=== PATIENT | female | born 2000 | race Caucasian/White ===

== ENCOUNTER → 2018-07-01 | Outpatient (CLI) | payer OTHER ==
[~2018-07-01] MED LIST: CRUTCH4 USE; IBUP600 PO; Percocet 5-3251 EACH PO
[2018-07-05 00:07] LABS: CHLAMYDIA TRACHOMATIS, NAA Negative (Negative); NEISSERIA GONORRHOEAE, NAA Negative (Negative)
== END | disposition home or self-care (01) ==
LOC: LAB 13:35 → LAB SHORT 13:35
PROVIDERS: Family Medicine
DX: Z11.3 Encounter for screening for infections with a predominantly sexual mode of transmission (principal)
CPT/HCPCS: 87491; 87591

== ENCOUNTER → 2018-08-09 | Outpatient (CLI) | payer OTHER ==
[2018-08-10 14:28] LABS: Candida species (DNA Probe) Negative (NEGATIVE); G. vaginalis (DNA Probe) Negative (NEGATIVE); T. vaginalis (DNA Probe) Negative (NEGATIVE)
== END ==
LOC: LAB SHORT 15:25 → LAB 15:25
PROVIDERS: Nurse Practitioner Family
DX: N39.0 Urinary tract infection, site not specified (principal); N89.8 Other specified noninflammatory disorders of vagina
CPT/HCPCS: 87086; 87480; 87510; 87660

== ENCOUNTER 2018-09-19 12:42 | Emergency (ER) | payer OTHER ==
[~2018-09-19] VITALS: Ht 162.6 cm; Wt 65.8 kg
[~2018-09-19 12:42] MED LIST changes: +Verotin-Gr Cap1 EACH PO
[2018-09-19 13:47] LABS: Source, Urine Clean Catch
[2018-09-19 13:51] LABS: BASOPHILS ABSOLUTE AUTO 0.02 K/mm3 (0.00-0.23); BASOPHILS PERCENT AUTO 0 % (0-2); EOSINOPHILS ABSOLUTE AUTO 0.01 K/mm3 (0.00-0.68); EOSINOPHILS PERCENT AUTO 0 % (0-6); Hematocrit 36.5 % (33.0-51.0); Hemoglobin 12.3 g/dL (11.5-16.0); IMMATURE GRAN ABSOLUTE AUTO 0.07 K/mm3 (0.00-0.10); IMMATURE GRAN PERCENT AUTO 1 % (0-1); LYMPHOCYTES PERCENT AUTO 5 % (21-46); MONOCYTES ABSOLUTE AUTO 0.25 K/mm3 (0.16-1.47); MONOCYTES PERCENT AUTO 2 % (4-13); Mean Corpuscular HGB 31.4 pg (26.0-34.0); Mean Corpuscular HGB Conc 33.7 g/dL (31.5-36.5); Mean Corpuscular Volume 93 fL (80-100); Mean Platelet Volume 9.6 fL (9.1-12.4); NEUTROPHILS ABSOLUTE AUTO 14.27 K/mm3 (1.96-9.15); NEUTROPHILS PERCENT AUTO 93 % (41-73); Platelet Count 262 K/mm3 (150-400); RDW Coefficient Variation 12.5 % (11.7-14.2); Red Blood Cell Count 3.92 M/mm3 (3.80-5.20); White Blood Cell Count 15.32 K/mm3 (4.00-11.30)
[2018-09-19 13:59] LABS: Bilirubin, Urine Neg (Neg); Blood, Urine Neg (Neg); Glucose Qualitative, Urine Neg (Neg); Ketones, Urine 4+ (Neg); Leukocyte Esterase, Urine Neg (Neg); Nitrite, Urine Neg (Neg); Protein, Urine Neg (Neg); Urobilinogen, Urine NORM (Normal)
[2018-09-19 14:11] LABS: Alanine Aminotransfer (ALT/SGP 19 U/L (12-78); Albumin, Blood 3.5 g/dL (3.4-5.0); Albumin/Globulin Ratio 0.9 (0.8-1.8); Alk Phos 60 U/L (50-136); Anion Gap 9 mmol/L (6-16); Aspartate Aminotrans (AST/SGOT 15 U/L (12-37); Bilirubin, Total 0.6 mg/dL (0.1-1.0); Blood Urea Nitrogen 8 mg/dL (8-24); Bun/Creatinine Ratio 14.5 (12.0-20.0); CO2, Blood 21 mmol/L (21-32); Calcium, Blood 8.7 mg/dL (8.5-10.1); Chloride, Blood 107 mmol/L (98-108); Creatinine, Blood 0.55 mg/dL (0.40-1.00); Globulin, Blood 3.8 g/dL (2.2-4.0); Glomerular Filtration Rate >60 (60-); Glucose, Blood 96 mg/dL (70-99); Potassium, Blood 3.6 mmol/L (3.5-5.5); Sodium, Blood 137 mmol/L (136-145); Total Protein, Blood 7.3 g/dL (6.4-8.2)
[2018-09-19 14:18] LABS: Appearance, Urine Hazy (Clear); Color, Urine Yellow (P-Yellow)
[2018-09-19 14:35] LABS: Beta HCG, Quantitative, Serum 29781 mIU/mL (0-3)
[2018-09-19 14:36] LABS: Bacteria Few /hpf; Red Blood Cells, Urine 0-2 /hpf (0-2); Squamous Epithelial Cells Many /hpf (Few)
[2018-09-19 14:37] LABS: Amorphous Light (0-Heavy); Mucus Mod (0-Heavy)
[2018-09-19] MEDS ORDERED: ONDA4ODT MM (16:57)
[2018-09-19] MEDS ORDERED: Augmentin 875-1 EACH PO (16:57)
== END 2018-09-19 17:10 | disposition home or self-care (01) ==
LOC: ER 12:42
PROVIDERS: Physician Assistant
DX: O99.612 Diseases of the digestive system complicating pregnancy, second trimester (principal); K52.9 Noninfective gastroenteritis and colitis, unspecified; Z3A.15 15 weeks gestation of pregnancy
CPT/HCPCS: 36415; 80053; 81001; 84702; 85025; 86900; 86901; 96374; 99285-25; J2405; J7030

== ENCOUNTER 2019-03-14 04:45 | Inpatient (IN) | payer OTHER ==
[~2019-03-14] VITALS: Ht 162.6 cm; Wt 81.8 kg
[~2019-03-14 04:45] MED LIST changes: +Augmentin 875-1 EACH PO; +ONDA4ODT MM
[2019-03-14 05:17] LABS: BASOPHILS ABSOLUTE AUTO 0.02 K/mm3 (0.00-0.23); BASOPHILS PERCENT AUTO 0 % (0-2); EOSINOPHILS ABSOLUTE AUTO 0.11 K/mm3 (0.00-0.68); EOSINOPHILS PERCENT AUTO 1 % (0-6); Hematocrit 38.7 % (33.0-51.0); Hemoglobin 13.2 g/dL (11.5-16.0); IMMATURE GRAN ABSOLUTE AUTO 0.07 K/mm3 (0.00-0.10); IMMATURE GRAN PERCENT AUTO 1 % (0-1); LYMPHOCYTES ABSOLUTE AUTO 2.36 K/mm3 (0.84-5.20); LYMPHOCYTES PERCENT AUTO 19 % (21-46); MONOCYTES ABSOLUTE AUTO 0.81 K/mm3 (0.16-1.47); MONOCYTES PERCENT AUTO 7 % (4-13); Mean Corpuscular HGB 31.1 pg (26.0-34.0); Mean Corpuscular HGB Conc 34.1 g/dL (31.5-36.5); Mean Corpuscular Volume 91 fL (80-100); Mean Platelet Volume 10.7 fL (9.1-12.4); NEUTROPHILS ABSOLUTE AUTO 9.17 K/mm3 (1.96-9.15); NEUTROPHILS PERCENT AUTO 73 % (41-73); Platelet Count 196 K/mm3 (150-400); RDW Coefficient Variation 12.5 % (11.7-14.2); RDW Standard Deviation 40.9 fL (35.1-46.3); Red Blood Cell Count 4.25 M/mm3 (3.80-5.20); White Blood Cell Count 12.54 K/mm3 (4.00-11.30)
[2019-03-15 05:00] LABS: BASOPHILS ABSOLUTE AUTO 0.02 K/mm3 (0.00-0.23); BASOPHILS PERCENT AUTO 0 % (0-2); EOSINOPHILS ABSOLUTE AUTO 0.07 K/mm3 (0.00-0.68); EOSINOPHILS PERCENT AUTO 1 % (0-6); Hematocrit 36.3 % (33.0-51.0); Hemoglobin 12.3 g/dL (11.5-16.0); IMMATURE GRAN ABSOLUTE AUTO 0.06 K/mm3 (0.00-0.10); IMMATURE GRAN PERCENT AUTO 0 % (0-1); LYMPHOCYTES ABSOLUTE AUTO 1.72 K/mm3 (0.84-5.20); LYMPHOCYTES PERCENT AUTO 12 % (21-46); MONOCYTES ABSOLUTE AUTO 0.82 K/mm3 (0.16-1.47); MONOCYTES PERCENT AUTO 6 % (4-13); Mean Corpuscular HGB 31.1 pg (26.0-34.0); Mean Corpuscular HGB Conc 33.9 g/dL (31.5-36.5); Mean Corpuscular Volume 92 fL (80-100); Mean Platelet Volume 10.6 fL (9.1-12.4); NEUTROPHILS ABSOLUTE AUTO 11.27 K/mm3 (1.96-9.15); NEUTROPHILS PERCENT AUTO 81 % (41-73); Platelet Count 153 K/mm3 (150-400); RDW Coefficient Variation 12.7 % (11.7-14.2); RDW Standard Deviation 42.5 fL (35.1-46.3); Red Blood Cell Count 3.95 M/mm3 (3.80-5.20); White Blood Cell Count 13.96 K/mm3 (4.00-11.30)
--- NOTE | 2019-03-15 19:29 | NUR ---
DISCAHRGE INSTRUCTIONS REVIEWED WITH PATIENT. VERBALIZES UNDERSTANDING, DENIES ANY FURTHER QUESTIONS OR CONCERNS. BANDS MATCHED. MOM DISCHARGED HOME WITH BABY.
== END 2019-03-15 19:13 | disposition home or self-care (01) | DRG 807 ==
LOC: BC 04:45
PROVIDERS: ADMIT Nurse Practitioner Obstetrics & Gynecology
PROC: 10E0XZZ Delivery of Products of Conception, External Approach (ICD-10-PCS; principal; 2019-03-14)
PROC: 3E0R3BZ Introduction of Anesthetic Agent into Spinal Canal, Percutaneous Approach (ICD-10-PCS; 2019-03-14)
DX: O48.0 Post-term pregnancy (principal); Z37.0 Single live birth; O99.824 Streptococcus B carrier state complicating childbirth; Z3A.40 40 weeks gestation of pregnancy
CPT/HCPCS: 36415; 51702; 85025; J1885; J2001; J2210; J2405; J2590; J3010; J7120

== ENCOUNTER 2022-01-14 00:24 | Emergency (ER) | payer OTHER ==
[~2022-01-14] VITALS: Ht 162.6 cm; Wt 72.6 kg
[2022-01-14 00:57] LABS: Source, Urine Clean Catch
[2022-01-14 02:36] LABS: Albumin, Blood 4.3 g/dL (3.4-5.0); Albumin/Globulin Ratio 1.3 (0.8-1.8); Bilirubin, Total 1.5 mg/dL (0.1-1.0); Bun/Creatinine Ratio 19.8 (12.0-20.0); Calcium, Blood 9.4 mg/dL (8.5-10.1); Creatinine, Blood 0.76 mg/dL (0.40-1.00); Globulin, Blood 3.4 g/dL (2.2-4.0); Potassium, Blood 4.2 mmol/L (3.5-5.5); Total Protein, Blood 7.7 g/dL (6.4-8.2)
[2022-01-14 04:33] LABS: Appearance, Urine Hazy (Clear); Color, Urine Amber (P-Yellow); Glucose Qualitative, Urine Neg (Neg); Ketones, Urine 4+ (Neg); Leukocyte Esterase, Urine 1+ (Neg); Nitrite, Urine Neg (Neg); Protein, Urine 2+ (Neg); Urobilinogen, Urine 1+ (Normal)
[2022-01-14 04:34] LABS: Bacteria Many /hpf; Bilirubin, Urine 1+ (Neg); Blood, Urine 2+ (Neg); Squamous Epithelial Cells Few /hpf (Few)
[2022-01-14 04:35] LABS: Hyaline Casts 0-2 /lpf (0-2); Mucus Mod (0-Heavy)
[2022-01-14 04:53] LABS: Adenovirus F 40/41 Not Detected (NOT DETECT); Astrovirus Not Detected (NOT DETECT); Campylobacter Sp Not Detected (NOT DETECT); Cryptosporidium Not Detected (NOT DETECT); Cyclospora Cayetanensis Not Detected (NOT DETECT); E. Coli O157 Not Detected (NOT DETECT); Entamoeba Histolytica Not Detected (NOT DETECT); Enteroaggregative E. coli-EAEC Not Detected (NOT DETECT); Enteropathogenic E. coli-EPEC Not Detected (NOT DETECT); Enterotoxigenic E. coli-ETEC Not Detected (NOT DETECT); Giardia Lamblia Not Detected (NOT DETECT); Norovirus GI/GII Detected (NOT DETECT); Plesiomonas Shigelloides Not Detected (NOT DETECT); Rotavirus A Not Detected (NOT DETECT); Salmonella Sp Not Detected (NOT DETECT); Sapovirus Not Detected (NOT DETECT); Shiga Toxin-prod E. coli-STEC Not Detected (NOT DETECT); Shigella/Enteroin E. coli-EIEC Not Detected (NOT DETECT); Vibrio Cholerae Not Detected (NOT DETECT); Vibrio Sp Not Detected (NOT DETECT); Yersinia Enterocolitica Not Detected (NOT DETECT)
[2022-01-14] MEDS ORDERED: DIPATR PO (05:08)
[2022-01-14] MEDS ORDERED: ONDA4ODT MM (05:08)
[2022-01-14 07:43] LABS: BASOPHILS ABSOLUTE AUTO 0.03 K/mm3 (0.00-0.23); BASOPHILS PERCENT AUTO 0 % (0-2); EOSINOPHILS ABSOLUTE AUTO 0.02 K/mm3 (0.00-0.68); EOSINOPHILS PERCENT AUTO 0 % (0-6); Hematocrit 41.8 % (33.0-51.0); Hemoglobin 14.9 g/dL (11.5-16.0); IMMATURE GRAN ABSOLUTE AUTO 0.06 K/mm3 (0.00-0.10); IMMATURE GRAN PERCENT AUTO 0 % (0-1); LYMPHOCYTES ABSOLUTE AUTO 0.47 K/mm3 (0.84-5.20); LYMPHOCYTES PERCENT AUTO 3 % (21-46); MONOCYTES ABSOLUTE AUTO 0.61 K/mm3 (0.16-1.47); MONOCYTES PERCENT AUTO 4 % (4-13); Mean Corpuscular HGB 32.1 pg (26.0-34.0); Mean Corpuscular HGB Conc 35.6 g/dL (31.5-36.5); Mean Corpuscular Volume 90 fL (80-100); Mean Platelet Volume 9.8 fL (9.1-12.4); NEUTROPHILS ABSOLUTE AUTO 12.99 K/mm3 (1.96-9.15); NEUTROPHILS PERCENT AUTO 92 % (41-73); Platelet Count 298 K/mm3 (150-400); RDW Coefficient Variation 11.6 % (11.7-14.2); RDW Standard Deviation 38.3 fL (35.1-46.3); Red Blood Cell Count 4.64 M/mm3 (3.80-5.20); White Blood Cell Count 14.18 K/mm3 (4.00-11.30)
[2022-03-11] MEDS ORDERED: OMEP20ER PO (11:36)
== END 2022-01-14 05:26 | disposition home or self-care (01) ==
LOC: ER 00:24
PROVIDERS: Emergency Medicine
DX: A08.4 Viral intestinal infection, unspecified (principal); Z91.018 Allergy to other foods
CPT/HCPCS: 80053; 81001; 81025; 83690; 85025; 87086; 87507; 96361; 96374; 96375; 99283-25; J1885; J2405; J7030

== ENCOUNTER → 2022-01-15 | Outpatient (CLI) | payer MEDICAID ==
[~2022-01-15] MED LIST changes: +DIPATR PO
[2022-01-16 15:52] LABS: Source, Urine Voided
[2022-01-16 17:23] LABS: Bacteria Mod /hpf; Squamous Epithelial Cells Few /hpf (Few)
== END ==
LOC: LAB SHORT 15:50
PROVIDERS: Nurse Practitioner Family
DX: N39.0 Urinary tract infection, site not specified (principal)
CPT/HCPCS: 81015; 87086

== ENCOUNTER 2022-10-30 02:43 | Emergency (ER) | payer OTHER ==
[~2022-10-30] VITALS: Ht 167.6 cm; Wt 79.4 kg
[~2022-10-30 02:43] MED LIST changes: +OMEP20ER PO
[2022-10-30 03:31] VITALS: BP 133/79
[2022-10-30] MEDS ORDERED: Amoxicillin875 MG PO (04:56)
[2022-10-30] MEDS ORDERED: IBUP800 PO (04:56)
== END 2022-10-30 05:06 | disposition home or self-care (01) ==
LOC: ER 02:43
DX: H66.92 Otitis media, unspecified, left ear (principal); J02.9 Acute pharyngitis, unspecified; Z91.018 Allergy to other foods; Z79.899 Other long term (current) drug therapy
CPT/HCPCS: 87081; 87430; 96372; 99282-25; A9270; J1885

== ENCOUNTER 2023-11-05 02:29 | Inpatient (IN) | payer OTHER ==
[~2023-11-05] VITALS: Ht 162.6 cm; Wt 87.3 kg
[2023-11-05] VITALS (42 sets, daily range): BP systolic 97–149; BP diastolic 55–108
[~2023-11-05 02:29] MED LIST changes: +Amoxicillin875 MG PO; +IBUP800 PO
[2023-11-05] MEDS ORDERED: Ondansetron 4 MG SoluTab SL ONE (03:50)
[2023-11-05] MEDS ORDERED: Bupivacaine 0.5% HCl 5 MG/ML 30MLVIAL XX SCH (04:35)
[2023-11-05] MEDS ORDERED: Oxytocin 10 Unit / ML Vial IM SCH (04:35)
[2023-11-05] MEDS ORDERED: Methylergonovine Maleate 0.2MG / ML 1ML Amp IM SCH (04:35)
[2023-11-05] MEDS ORDERED: FentaNYL Citrate 50 MCG/ML 2 ML Injection IV ONE (04:35)
[2023-11-05] MEDS ORDERED: Lactated Ringer's 1,000 ML IV PRN (04:35)
[2023-11-05] MEDS ORDERED: LR Oxytocin 20 Units 1,000 ML IV SCH ×2 (04:35→10:25)
[2023-11-05] MEDS ORDERED: Bupivacaine HCl 2.5 MG/ML 10ML P/F Injection XX SCH (04:35)
[2023-11-05] MEDS ORDERED: Castor Oil 59.146 ML BTL TOP SCH (04:35)
[2023-11-05] MEDS ORDERED: Misoprostol 200 MCG Tab PR SCH (04:35)
[2023-11-05] MEDS ORDERED: Lidocaine HCl 1% 30 ML SDV XX SCH (04:35)
[2023-11-05] MEDS ORDERED: ePHEDrine Sulfate 50 MG/ML 1ML Injection XX PRN (04:40)
[2023-11-05] MEDS ORDERED: Lactated Ringer's 1,000 ML IV SCH ×3 (04:40→10:25)
[2023-11-05] MEDS ORDERED: FentaNYL 2mcg/ml-Bup 0.1% Epd 250 ML EPI PRN (04:40)
[2023-11-05 04:56] LABS: BASOPHILS ABSOLUTE AUTO 0.02 K/mm3 (0.00-0.23); BASOPHILS PERCENT AUTO 0 % (0-2); EOSINOPHILS ABSOLUTE AUTO 0.03 K/mm3 (0.00-0.68); EOSINOPHILS PERCENT AUTO 0 % (0-6); Hematocrit 38.8 % (33.0-51.0); Hemoglobin 13.5 g/dL (11.5-16.0); IMMATURE GRAN ABSOLUTE AUTO 0.08 K/mm3 (0.00-0.10); IMMATURE GRAN PERCENT AUTO 0 % (0-1); LYMPHOCYTES ABSOLUTE AUTO 1.22 K/mm3 (0.84-5.20); LYMPHOCYTES PERCENT AUTO 6 % (21-46); MONOCYTES ABSOLUTE AUTO 0.68 K/mm3 (0.16-1.47); MONOCYTES PERCENT AUTO 3 % (4-13); Mean Corpuscular HGB 31.3 pg (26.0-34.0); Mean Corpuscular HGB Conc 34.8 g/dL (31.5-36.5); Mean Corpuscular Volume 90 fL (80-100); Mean Platelet Volume 10.5 fL (9.1-12.4); NEUTROPHILS ABSOLUTE AUTO 17.99 K/mm3 (1.96-9.15); NEUTROPHILS PERCENT AUTO 90 % (41-73); Platelet Count 222 K/mm3 (150-400); RDW Coefficient Variation 12.4 % (11.7-14.2); RDW Standard Deviation 41.2 fL (35.1-46.3); Red Blood Cell Count 4.31 M/mm3 (3.80-5.20); White Blood Cell Count 20.02 K/mm3 (4.00-11.30)
[2023-11-05] MEDS ORDERED: FentaNYL Citrate 50 MCG/ML 2 ML Injection ONE (05:15)
[2023-11-05] MEDS ORDERED: Calcium Carbonate 500 MG Tab Chew PO ONE (08:30)
[2023-11-05] MEDS ORDERED: Ibuprofen 400 MG Tab PO PRN (10:25)
[2023-11-05] MEDS ORDERED: Methylergonovine Maleate 0.2MG / ML 1ML Amp IM PRN (10:25)
[2023-11-05] MEDS ORDERED: Docusate Sodium 100 MG Cap PO PRN (10:30)
[2023-11-05] MEDS ORDERED: Witch Hazel/Glycerin PADS TOP PRN (10:30)
[2023-11-05] MEDS ORDERED: Lanolin Cream TOP PRN (10:30)
[2023-11-05] MEDS ORDERED: Oxytocin 10 Unit / ML Vial IM ONE (10:30)
[2023-11-05] MEDS ORDERED: Diphth,Pertuss(Acell),Tet Vac 0.5 ML VIAL IM SCH (10:30)
[2023-11-05] MEDS ORDERED: Benzocaine Topical Anesthetic Spray 60GM TOP PRN (10:30)
[2023-11-05] MEDS ORDERED: Acetaminophen 325 MG TABLET PO PRN (10:35)
[2023-11-05] MEDS ORDERED: OxyCODONE 5 mg/Acetamin 325 mg TABLET PO PRN (10:35)
[2023-11-05] MEDS ORDERED: Misoprostol 200 MCG Tab PO PRN (10:35)
[2023-11-05] MEDS ORDERED: Ketorolac Tromethamine 30mg Vial IV PRN (11:00)
[2023-11-05] MEDS ORDERED: Ketorolac Tromethamine 30mg Vial IV ONE (11:00)
[2023-11-05] MEDS ORDERED: Oxytocin 10 Unit / ML Vial XX ONE (19:01)
[2023-11-06] MEDS ORDERED: Calcium Carbonate 500 MG Tab Chew PO ONE (00:15)
[2023-11-06 03:30] VITALS: BP 128/64
[2023-11-06 08:14] VITALS: BP 129/68
[2023-11-06] MEDS ORDERED: Prenatal Vit/FE Fumarate/FA 1 Tab PO SCH (09:00)
== END 2023-11-06 11:32 | disposition home or self-care (01) | DRG 807 ==
LOC: OBS 02:29 → BC 02:32 → OBS 04:31 → BC 04:33
PROVIDERS: ADMIT Advanced Practice Midwife
PROC: 10E0XZZ Delivery of Products of Conception, External Approach (ICD-10-PCS; principal; 2023-11-05)
PROC: 10907ZC Drainage of Amniotic Fluid, Therapeutic from Products of Conception, Via Natural or Artificial Opening (ICD-10-PCS; 2023-11-05)
PROC: 3E0R3BZ Introduction of Anesthetic Agent into Spinal Canal, Percutaneous Approach (ICD-10-PCS; 2023-11-05)
PROC: 00HU33Z Insertion of Infusion Device into Spinal Canal, Percutaneous Approach (ICD-10-PCS; 2023-11-05)
DX: O48.0 Post-term pregnancy (principal); Z37.0 Single live birth; Z3A.40 40 weeks gestation of pregnancy; Z91.018 Allergy to other foods
CPT/HCPCS: 36415; 51702; 59025; 85025; 86850; 86900; 86901; A9270; J1885; J2590; J3010; J7120